=== PATIENT | female | born 1980 | race Hispanic/Latino ===

== ENCOUNTER 2017-11-14 03:22 | Emergency (ER) | payer MEDICAID, OTHER ==
[2017-11-14 04:12] LABS: APPEARANCE,URINE Cloudy (CLEAR); BILIRUBIN,URINE Negative (NEGATIVE); COLOR,URINE Yellow (YELLOW); GLUCOSE, URINE (UA) Negative (NEGATIVE); KETONES,URINE >=80 mg/dL (NEGATIVE); LEUKOCYTE ESTERASE ,URINE Trace (NEGATIVE); NITRATE,URINE Negative (NEGATIVE); OCCULT BLOOD,URINE Negative (NEGATIVE); PROTEIN,URINE Negative (NEGATIVE)
[2017-11-14 04:17] LABS: BASOPHILS % (AUTO) 0.9 % (0.0-5.0); EOSINOPHILS % (AUTO) 1.5 % (0.0-8.0); LYMPHOCYTES % (AUTO) 20.1 % (21.0-51.0); MEAN CORPUSCULAR HEMOGLOBIN 27.3 pg (27.0-33.0); MEAN CORPUSCULAR HGB CONC 33.4 g/dL (32.0-36.0); MEAN CORPUSCULAR VOLUME 81.7 fL (79-99); MONOCYTES % (AUTO) 7.5 % (3.0-13.0); NUCLEATED RED BLOOD CELLS 0.1 % (0.0-0.19); PLATELET COUNT (AUTO) 224 K/uL (130-400); RED BLOOD CELL COUNT(AUTO) 4.28 MIL/uL (4.00-5.50); RED CELL DISTRIBUTION WIDTH 14.8 % (11.0-15.5)
[2017-11-14 04:18] LABS: AMPHET/METH SCREEN,URINE NEGATIVE (NEGATIVE); BARBITURATE SCREEN, URINE NEGATIVE (NEGATIVE); BENZODIAZEPINES SCREEN,URINE NEGATIVE (NEGATIVE); CANNABINOID SCREEN,URINE NEGATIVE (NEGATIVE); COCAINE SCREEN,URINE POSITIVE (NEGATIVE); OPIATE SCREEN,URINE NEGATIVE (NEGATIVE); PHENCYCLIDINE SCREEN,URINE NEGATIVE (NEGATIVE)
[2017-11-14 04:19] LABS: AMORPHOUS SEDIMENT,UR Rare /LPF (None Seen); BACTERIA,URINE None Seen /HPF (None Seen); CREATININE 0.6 mg/dL (0.5-1.5); POTASSIUM 3.7 mmol/L (3.5-5.1); RBC,URINE None Seen /HPF (0-1); SQUAMOUS EPITHELIAL CELL,UR Moderate /HPF (0-2); WBC,URINE 0-1 /HPF (0-1)
[2017-11-14 04:23] LABS: ACETAMINOPHEN < 1 mcg/mL (10-30); ALBUMIN 3.7 g/dL (3.5-5.0); BILIRUBIN,TOTAL 0.5 mg/dL (0.2-1.0); SALICYLATE 5.8 mg/dL (2.8-20.0); TOTAL PROTEIN, SERUM 7.4 g/dL (6.0-8.3)
[2017-11-14 04:31] LABS: HCG,QUAL RESULT NEGATIVE (NEGATIVE)
[2017-11-14] MEDS ORDERED: DIVALPROEX SODIUM 250 MG TABLET.DR PO ONE (05:38)
[2017-11-14] MEDS ORDERED: TRAZODONE HCL 50 MG TAB ONE (05:39)
[2017-11-14] MEDS ORDERED: OLANZAPINE 10MG/ML 1ML VIAL IM ONE (05:43)
== END 2017-11-14 06:30 | disposition home or self-care (01) ==
LOC: EDH 03:22
DX: F20.9 Schizophrenia, unspecified (principal); F29 Unspecified psychosis not due to a substance or known physiological condition; Z98.890 Other specified postprocedural states
CPT/HCPCS: 36415; 80053; 80305; 81001; 81025; 85025; 93005; 96372; 99285; G0480 ×2; G0481; J3490

== ENCOUNTER 2018-03-21 18:59 | Emergency (ER) | payer MEDICAID ==
[2018-03-21] MEDS ORDERED: METOCLOPRAMIDE 10 MG/2 ML VIAL ONE (19:23)
[2018-03-21 19:33] LABS: EOSINOPHILS % (AUTO) 8.9 % (0.0-8.0); HEMATOCRIT 35.1 % (36-48); LYMPHOCYTES % (AUTO) 41.6 % (21.0-51.0); MEAN CORPUSCULAR HEMOGLOBIN 26.4 pg (27.0-33.0); MEAN CORPUSCULAR HGB CONC 33.3 g/dL (32.0-36.0); MEAN CORPUSCULAR VOLUME 79.3 fL (79-99); MONOCYTES % (AUTO) 14.2 % (3.0-13.0); NEUTROPHILS % (AUTO) 34.3 % (40.0-77.0); PLATELET COUNT (AUTO) 215 K/uL (130-400); RED BLOOD CELL COUNT(AUTO) 4.43 MIL/uL (4.00-5.50); RED CELL DISTRIBUTION WIDTH 17.3 % (11.0-15.5); WHITE BLOOD COUNT (AUTO) 4.9 K/uL (4.8-10.8)
[2018-03-21 19:38] LABS: CREATININE 0.8 mg/dL (0.5-1.5); POTASSIUM 3.4 mmol/L (3.5-5.1)
[2018-03-21 19:44] LABS: ALBUMIN 3.2 g/dL (3.5-5.0); BILIRUBIN,TOTAL 0.3 mg/dL (0.2-1.0); TOTAL PROTEIN, SERUM 6.8 g/dL (6.0-8.3)
[2018-03-21] MEDS ORDERED: POTASSIUM BICARB/CIT AC 25 MEQ TABLET.EFF ONE (19:56)
== END 2018-03-21 21:34 | disposition home or self-care (01) ==
LOC: EDH 18:59
DX: R51 Headache (principal); F41.9 Anxiety disorder, unspecified; F32.9 Major depressive disorder, single episode, unspecified; F20.9 Schizophrenia, unspecified; Z72.0 Tobacco use
CPT/HCPCS: 36415; 70450; 80053; 82550; 84703; 85025; 96372; 99285; J2765

== ENCOUNTER 2018-09-11 18:44 | Inpatient (IN) | payer MEDICAID, OTHER ==
[~2018-09-11] VITALS: Ht 157.5 cm; Wt 63.0 kg
[2018-09-11 19:49] LABS: BASOPHILS % (AUTO) 0.8 % (0.0-5.0); EOSINOPHILS % (AUTO) 1.8 % (0.0-8.0); HEMATOCRIT 33.3 % (36-48); LYMPHOCYTES % (AUTO) 39.2 % (21.0-51.0); MEAN CORPUSCULAR HEMOGLOBIN 26.2 pg (27.0-33.0); MEAN CORPUSCULAR HGB CONC 32.9 g/dL (32.0-36.0); MEAN CORPUSCULAR VOLUME 79.7 fL (79-99); MONOCYTES % (AUTO) 6.1 % (3.0-13.0); NEUTROPHILS % (AUTO) 52.1 % (40.0-77.0); NUCLEATED RED BLOOD CELLS 0.1 % (0.0-0.19); PLATELET COUNT (AUTO) 230 K/uL (130-400); RED BLOOD CELL COUNT(AUTO) 4.17 MIL/uL (4.00-5.50); RED CELL DISTRIBUTION WIDTH 16.1 % (11.0-15.5); WHITE BLOOD COUNT (AUTO) 5.1 K/uL (4.8-10.8)
[2018-09-11 19:58] LABS: CREATININE 0.5 mg/dL (0.5-1.5); POTASSIUM 3.6 mmol/L (3.5-5.1)
[2018-09-11 20:03] LABS: ALBUMIN 2.6 g/dL (3.5-5.0); BILIRUBIN,TOTAL 0.1 mg/dL (0.2-1.0); TOTAL PROTEIN, SERUM 6.1 g/dL (6.0-8.3)
[2018-09-11 20:08] LABS: APPEARANCE,URINE Cloudy (CLEAR); BILIRUBIN,URINE Negative (NEGATIVE); COLOR,URINE Yellow (YELLOW); GLUCOSE, URINE (UA) Negative (NEGATIVE); KETONES,URINE Negative (NEGATIVE); LEUKOCYTE ESTERASE ,URINE Negative (NEGATIVE); NITRATE,URINE Negative (NEGATIVE); OCCULT BLOOD,URINE Negative (NEGATIVE); PH,URINE 7.5 (5.0-8.0); PROTEIN,URINE Negative (NEGATIVE)
[2018-09-11 20:38] LABS: BACTERIA,URINE Few /HPF (None Seen); RBC,URINE 0-1 /HPF (0-1); SQUAMOUS EPITHELIAL CELL,UR Rare /HPF (0-2); WBC,URINE 0-1 /HPF (0-1)
[2018-09-11 20:39] LABS: AMORPHOUS SEDIMENT,UR Few /LPF (None Seen)
--- NOTE | 2018-09-11 22:45 | NUR ---
Patient received from ED: Patient came in via stretcher accompanied by director sports and Tyrese Noel Ingredient Handler. Patient had history of Schizoprenia had slurred speech speech. Patient and Guard informed that she can eat regular foods and nothing by mouth after Midnight. They were oriented to her room, call light given. Plan of care discussed with patient verbalizes understanding.
[2018-09-11 22:55] VITALS: BP 108/62
--- NOTE | 2018-09-11 22:55 | NUR ---
Patient informed: Patient and Blayne Noel informed that patient can have regular diet after Midnight she cannot eat or drink anything. They verbalizes understanding.
--- NOTE | 2018-09-11 22:55 | NUR ---
Patient given food to eat: Patient requested something to eat was given a [place], jello and apple juice after eating she asked for another one. Ashley Bert said, " She had eaten a sandwich also in ED before coming in.
--- NOTE | 2018-09-11 22:55 | NUR ---
Patient came from [facility] accompanied by a Roll Forming Machine Set Up Mechanic Tyrese Noel.
[2018-09-11] MEDS ORDERED: ACETAMINOPHEN 325 MG TAB PO PRN ×2 (23:00)
[2018-09-11] MEDS ORDERED: ONDANSETRON HCL MDV 20ML 2 MG/ML VIAL IVP PRN (23:00)
[2018-09-12] MEDS: LACTATED RINGERS 1000ML 1,000 ML IV SCH ×3 (00:39→19:41)
[2018-09-12 00:54] VITALS: BP 106/53
[2018-09-12 04:11] VITALS: BP 107/56
[2018-09-12] MEDS ORDERED: PREN-66 PO (05:07)
[2018-09-12] MEDS ORDERED: LURA20TA PO (05:07)
[2018-09-12] MEDS ORDERED: TRAZ150T79 PO (05:07)
--- NOTE | 2018-09-12 07:15 | NUR ---
REPORT RECEIVED FROM SNEHA SHAH AND WAS MADE AWARE OF ULTRASOUND SHOWING A DEMISE OF APPROX. 16.[address] HURTADO AT THIS TIME AND WAS MADE AWARE OF PATIENT HAVING A DEMISE AND NOT MISSED . INDICATED HE WOULD BE IN THIS A.M. TO ASSESS PATIENT. PATIENT NPO AT THIS TIME.
[2018-09-12 07:31] VITALS: BP 93/52
--- NOTE | 2018-09-12 07:40 | NUR ---
PATIENT ASSESSED AND DENIES PAIN AND NO VAGINAL BLEEDING NOTED. PIV TO RAC IS INFUSING WELL AND PATIENT CALM AT THIS TIME AND HAS COUNTY OFFICER AT BEDSIDE.
--- NOTE | 2018-09-12 08:15 | NUR ---
BENNY SANDHU IN FROM [facility] AND INDICATED NEEDING TO KNOW IF ANYTHING WAS GOING TO BE DONE AND FIND OUT LENGTH OF TIME PATIENT WOULD BE STAYING IN HOSPITAL. INFORMED BENNY SANDHU THAT UNTIL DR. HURTADO COMES TO EVALUATE PATIENT, I COULD NOT KNOW WHAT THE PLAN WOULD BE.
[2018-09-12 10:34] LABS: AMPHET/METH SCREEN,URINE NEGATIVE (NEGATIVE); BARBITURATE SCREEN, URINE NEGATIVE (NEGATIVE); BENZODIAZEPINES SCREEN,URINE NEGATIVE (NEGATIVE); CANNABINOID SCREEN,URINE NEGATIVE (NEGATIVE); COCAINE SCREEN,URINE POSITIVE (NEGATIVE); OPIATE SCREEN,URINE NEGATIVE (NEGATIVE); PHENCYCLIDINE SCREEN,URINE NEGATIVE (NEGATIVE)
--- NOTE | 2018-09-12 11:00 | NUR ---
DR. HURTADO REQUESTED TO GET QUALITY ASSURANCE SUPERVISOR AND PATIENT'S FATHER WHO HAS LEGAL POWER OF MACHINE SORTER FOR MEDICAL PURPOSES TO VERIFY DEMISE FOR CONSENTING PURPOSES. PATIENT'S FATHER AGREED AND STATED BEING IN AGREEMENT WITH WHATEVER DR. HURTADO NEEDED TO DO AND SIGNED CONSENT FOR REPEAT SECTION. DR. HURTADO INDICATED THAT IT WOULD BE DONE IN A.M. ON 09/13/2018. PATIENT IS STABLE AND HAS HAD NO C/O PAIN. UDS WAS DONE REQUESTED AND PATIENT WAS POSITIVE FOR COCAINE.
--- NOTE | 2018-09-12 11:07 | NUR ---
DC PLAN SPOKE TO DR. HURTADO - PATIENT FROM [facility] WAITING ON PARENTS TO ARRIVE. PER FATHER HAS POA. FATHER WOULD LIKE TUBAL LIGATION. SPOKE TO MARION DIRECTOR OF CASE MANAGEMENT. SAID TUBAL NOT EMERGENCY. HAS TO GET PRE AUTHORIZED BY MEDICAID AND THERE IS [address] LET [address]. HURTADO KNOW SAID WILL NOT DO TUBAL. WILL NEED TO DO C SECTION BECAUSE BABY APPEARS TO BE FURTHER ALONG THAN MOTHER IS AWARE.
[2018-09-12 11:30] VITALS: BP 89/42
[2018-09-12 15:38] VITALS: BP 123/43
[2018-09-12 20:25] VITALS: BP 120/69
--- NOTE | 2018-09-12 20:25 | NUR ---
Patient: Patient received with leg cuff both lower extremities with Tyrese Lara at bedside to watch patient. She had an IV of LR infusing at 125 ml/hour. Diaper changed for incontinent urine. Plan of care discussed with patient and Jane Noel. They verbalizes understanding. Patient had history of Section per Salima Slade RN, Patient's Father told SNEHA Slade , also he had a special medical Power of Facilities Operations Technician. Patient denied any Surgery yesterday when interviewed upon admission.
--- NOTE | 2018-09-12 20:30 | NUR ---
LOS theodore noted was off. Jane Noel said patient took it off.
[2018-09-13] VITALS (7 sets, daily range): BP systolic 92–109; BP diastolic 53–66
--- NOTE | 2018-09-13 00:20 | NUR ---
PATIENT: Patient had wet diaper verbalizes the need to shower. She was assisted to take a shower, needs provided. At 0037 she was back to bed, LOS theodore applied informed not to take it out. She verbalizes understanding.
[2018-09-13] MEDS: LACTATED RINGERS 1000ML 1,000 ML IV SCH (05:12)
[2018-09-13] MEDS ORDERED: DURAMORPH PF1 MG/ML 10ML AMP IV ONE (10:02)
--- NOTE | 2018-09-13 10:30 | NUR ---
PATIENT WAS TAKEN TO L/D OR FOR HYSTEROSCOPY FOR REMOVAL OF DEMISE. PATIENT STABLE AND WAS CALM.
[2018-09-13] MEDS ORDERED: CALDOLOR 800MG+NS 250ML 250 ML IV ONE (10:42)
[2018-09-13] MEDS ORDERED: CEFAZOLIN SODIUM 1 GM VIAL ONE (10:42)
[2018-09-13] MEDS ORDERED: DEXAMETHASONE SOD PHOSPHATE 10MG/ML 1ML VIAL ONE (10:52)
[2018-09-13] MEDS ORDERED: MIDAZOLAM HCL 1 MG/ML 2ML VIAL ONE ×3 (10:52→11:33)
[2018-09-13] MEDS ORDERED: LIDOCAINE PF 2% 5ML ABBOJECT ONE (10:52)
[2018-09-13] MEDS ORDERED: FENTANYL CITRATE PF 50 MCG/1 ML 2ML VIAL ONE (10:53)
[2018-09-13] MEDS ORDERED: PROPOFOL 10 MG/ML 20ML VIAL IV ONE (10:53)
[2018-09-13] MEDS ORDERED: ONDANSETRON HCL 4 MG/2 ML VIAL ONE (10:53)
[2018-09-13] MEDS ORDERED: LIDOCAINE HCL 2% JELLY 5 ML ONE (10:54)
--- NOTE | 2018-09-13 11:00 | NUR ---
PATIENT'S FATHER IN TO SEE PATIENT AND INDICATED WAS GOING TO LOBBY TO WAIT FOR SURGERY TO BE DONE. DR. HURTADO INDICATED BEING AWARE AND WOULD SPEAK TO HIM.
[2018-09-13] MEDS ORDERED: CEFAZOLIN SODIUM 1 GM VIAL IVP ONE (11:03)
[2018-09-13] MEDS ORDERED: OXYTOCIN 10 USP UNITS/ML ONE (11:22)
[2018-09-13] MEDS ORDERED: SODIUM CHLORIDE 0.9% 10 ML VIAL IVP PRN (12:15)
[2018-09-13] MEDS ORDERED: DEXTROSE 5 %-0.45 % NACL 1,000 ML IV PRN (12:15)
[2018-09-13] MEDS ORDERED: IBUPROFEN 600 MG TABLET PO PRN (12:15)
[2018-09-13] MEDS ORDERED: DIPHENHYDRAMINE HCL 25 MG CAPSULE PO PRN (12:15)
[2018-09-13] MEDS ORDERED: ACETAMINOPHEN-CODEINE 300/30MG TAB PO PRN (12:15)
[2018-09-13] MEDS ORDERED: OXYTOCIN-LR 20 UNITS/1000 ML 1,000 ML IV ONE (12:43)
[2018-09-13] MEDS ORDERED: EPHEDRINE SULFATE 50 MG/ML AMPULE IVP PRN (13:00)
[2018-09-13] MEDS ORDERED: NALOXONE HCL 0.4 MG/1 ML ML IVP PRN (13:00)
[2018-09-13] MEDS ORDERED: ONDANSETRON HCL 4 MG/2 ML VIAL IVP PRN (13:00)
[2018-09-13] MEDS ORDERED: METOCLOPRAMIDE 10 MG/2 ML VIAL IVP PRN (13:00)
[2018-09-13] MEDS ORDERED: PROMETHAZINE HCL 25 MG/ML 1ML AMPULE IM PRN (13:00)
[2018-09-13] MEDS ORDERED: HYDROCODONE/ACETAMINOPHEN 5/325 MG TAB PO PRN (13:00)
[2018-09-13] MEDS ORDERED: ONDANSETRON HCL 4 MG/2 ML 8 MG in SODIUM CHLORIDE 0.9% 50 ML IVP NR (13:00)
[2018-09-13] MEDS ORDERED: MORPHINE SULFATE 2 MG/ML 1ML SYG IVP PRN (13:00)
[2018-09-13] MEDS ORDERED: DiphenhydrAMINE HCL 50 MG/ML VIAL IVP PRN (13:00)
--- NOTE | 2018-09-13 13:30 | NUR ---
REPORT RECEIVED FROM Carter SHEPHERD RN AND PATIENT TRANSFERED BACK TO HER ROOM. PATIENT IS STABLE AND DENIES PAIN. PIV PATENT AND INFUSING WELL TO RAC. FUNDUS IS FIRM AND LOCHIA IS SMALL. ABDOMINAL DRESSING HAS SMALL STAIN AND WAS MARKED. GEORGE CATHETER IS DRAINING CLEAR YELLOW URINE.
[2018-09-13] MEDS: ONDANSETRON HCL 4 MG/2 ML VIAL IVP PRN ×2 (13:49→18:31)
[2018-09-13] MEDS: HYDROCODONE/ACETAMINOPHEN 5/325 MG TAB PO PRN (14:00)
--- NOTE | 2018-09-13 18:00 | NUR ---
PATIENT HAS BEEN TOLERATING DIET WELL AND FULL LIQUIDS WERE ORDERED FOR DINNER. ATE 100% AND DENIES ANY NAUSEA OR VOMITING. PATIENT HAS BEEN MEDICATED WITH ZOFRAN AND BENADRYL FOR ITCHING AND NORCO FOR PAIN.
[2018-09-13] MEDS: CALDOLOR 800MG+NS 250ML 250 ML IV SCH (20:20)
[2018-09-13] MEDS: DOCUSATE SODIUM 100 MG CAP PO SCH (20:20)
--- NOTE | 2018-09-13 20:45 | NUR ---
RICKIE BLUNT IN ROOM/ AT BEDSIDE, PLACED ANKLE CUUFFS ON PATIENT Addendum: 09/14/18 at 0130 by KAYLA MORAES LVN Amended: Links added.
[2018-09-14] MEDS: HYDROCODONE/ACETAMINOPHEN 5/325 MG TAB PO PRN (00:13)
[2018-09-14 03:21] VITALS: BP 105/58
[2018-09-14] MEDS: CALDOLOR 800MG+NS 250ML 250 ML IV SCH (04:42)
--- NOTE | 2018-09-14 05:35 | NUR ---
ACTIVITY SUSHILA CARE GIVEN, CARLITA MOSHER, ASSISTED TO SIDE OF BED, DANGLED, TOLERATED WELL, UP TO CHAIR W/O ANY DIFFICULTY GUARD AT SIDE Addendum: 09/14/18 at 0554 by KAYLA MORAES LVN Amended: Links added.
[2018-09-14 07:18] LABS: HEMATOCRIT 29.7 % (36-48); MEAN CORPUSCULAR HEMOGLOBIN 26.4 pg (27.0-33.0); MEAN CORPUSCULAR HGB CONC 32.3 g/dL (32.0-36.0); MEAN CORPUSCULAR VOLUME 81.7 fL (79-99); PLATELET COUNT (AUTO) 217 K/uL (130-400); RED BLOOD CELL COUNT(AUTO) 3.63 MIL/uL (4.00-5.50); RED CELL DISTRIBUTION WIDTH 16.1 % (11.0-15.5); WHITE BLOOD COUNT (AUTO) 6.1 K/uL (4.8-10.8)
[2018-09-14 07:41] VITALS: BP 108/52
[2018-09-14] MEDS ORDERED: BISACODYL 10 MG SUPP.RECT RC PRN (08:00)
[2018-09-14] MEDS ORDERED: SIMETHICONE 80 MG TAB.CHEW PO PRN (08:00)
[2018-09-14] MEDS ORDERED: ACETAMINOPHEN-CODEINE 300/30MG TAB PO PRN (08:00)
[2018-09-14] MEDS ORDERED: HYDROCODONE/ACETAMINOPHEN 5/325 MG TAB PO PRN (08:00)
[2018-09-14] MEDS ORDERED: DIPHENHYDRAMINE HCL 25 MG CAPSULE PO PRN (08:00)
[2018-09-14] MEDS ORDERED: ACETAMINOPHEN EXTRA STRENGTH 500 MG TABLET PO PRN (08:00)
--- NOTE | 2018-09-14 08:30 | NUR ---
GEORGE GEORGE REMOVED, CATHETER TIP INTACT, 500mL OF CLEAR YELLOW URINE REMOVED, SUSHILA-CARE PROVIDED; DRESSING OVER INCISION REMOVED EXPOSING INCISION w/ HIDDEN STITCH, DRY AND INTACT, COVERED WITH SUSHILA PAD TO MAINTAIN DRY, ABDOMINAL BINDER PLACED OVER FOR SUPPORT; SCDs OFF ALREADY, ADJUSTED LOS HOSES; PT OOB TO CHAIR, STEADY GAIT, NO DIZZINESS NOR FATIGUE NOTED; PT DEEP BREATHED AND COUGHED UP SMALL, THIN, CLEAR PHLEGM, ENCOURAGED I.S. USAGE; POC DISCUSSED, PT VERBALIZED UNDERSTANDING Addendum: 09/14/18 at 1312 by PAIGE TATE RN Amended: Links added.
[2018-09-14] MEDS: DOCUSATE SODIUM 100 MG CAP PO SCH ×4 (09:00→21:33)
[2018-09-14] MEDS: SIMETHICONE 80 MG TAB.CHEW PO PRN ×4 (09:02→21:33)
[2018-09-14 11:09] VITALS: BP_SYST 118; BP_SYST 120; BP_DIAS 75; BP_DIAS 76
[2018-09-14] MEDS ORDERED: IBUPROFEN 800 MG TAB ONE (12:52)
[2018-09-14] MEDS: IBUPROFEN 800 MG TAB PO SCH ×2 (13:14→21:33)
[2018-09-14] MEDS: LACTATED RINGERS 1000ML 1,000 ML IV SCH (15:00)
--- NOTE | 2018-09-14 15:15 | NUR ---
ACTIVITY PT REQUESTING HELP SINCE VOIDED ON SELF AND SHE WALKED IN ROOM TOWARDS THE BATHROOM, STATED SHE TOOK OFF PADS AND UNDERWEAR TO SLEEP AND WHEN AWOKE, DID NOT MAKE IT IN TIME TO BATHROOM; PT WAS ABLE TO DO OWN SUSHILA-CARE, PT WAS GIVEN A DIAPER PER REQUEST. PT BEGAN TO SPEAK IN A CHILD-LIKE VOICE, REQUESTING COOKIES AND CHOCOLATE THAT HER FATHER HAD BROUGHT HER PREVIOUSLY; RICKIE STATED SHE DOES NOT ACT LIKE THAT WHILE IN LONG TERM SO IS VERY SURPRISED AT HER ATTITUDE. TRIED TO TALK WITH PT BUT SHE JUST WANTS HER SNACKS. WILL CONTINUE TO MONITOR
[2018-09-14 15:32] VITALS: BP 109/60
--- NOTE | 2018-09-14 17:58 | NUR ---
ACTIVITY ENCOURAGED PT TO AMBULATE IN HALLWAY, STATED WILL DO IT LATER; HAD CONVERSATION REGARDING SMOKING CESSATION, PT VERBALIZED SHE SMOKES A CIGARETTE ONCE IN A BLUE BOWDEN AND ONLY 1 CIGARETTE, STATES DEPENDENCY IS LOW TO NONE; DISCUSSED WITH PT THAT GETTING OUT OF BED IS GOOD, EVEN TO VOID IN TOILET BUT PT AND RICKIE BOTH STATE THAT SHE SOMETIMES DOES NOT MAKE IT ON TIME THUS PREFERS TO USE DIAPERS, EXPLAINED I.S., SUSHILA-CARE AND INCISION CARE, PT VERBALIZED UNDERSTANDING; PT HAS SHOWERED THREE TIMES DURING THIS SHIFT, WHEN ASKED WHY STATES IT HELPS WITH THE CRAMPING SINCE MEDS DO NOT TAKE CRAMPS AWAY; POC DISCUSSED WITH PT VERBALIZING UNDERSTANDING
--- NOTE | 2018-09-14 19:14 | NUR ---
REPORT REPORT GIVEN TO SNEHA GRIFFIN FOR CONTINUITY OF CARE AT BEDSIDE
[2018-09-14 21:15] VITALS: BP 89/44
[2018-09-15] VITALS: BP 102/57
[2018-09-15 03:57] VITALS: BP 102/62
[2018-09-15] MEDS: IBUPROFEN 800 MG TAB PO SCH ×2 (05:02→13:13)
[2018-09-15 06:17] LABS: HEPATITIS Bs ANTIGEN SCREEN P Negative (Negative)
[2018-09-15] MEDS: LACTATED RINGERS 1000ML 1,000 ML IV SCH (07:00)
[2018-09-15 08:28] VITALS: BP 105/49
[2018-09-15] MEDS: DOCUSATE SODIUM 100 MG CAP PO SCH ×2 (08:29→08:32)
[2018-09-15] MEDS: SIMETHICONE 80 MG TAB.CHEW PO PRN ×2 (08:29→13:12)
--- NOTE | 2018-09-15 09:55 | NUR ---
COCAINE VISITED WITH PATIENT. PATIENT RESTING. INTRODUCED SELF EXPLAINED REASON FOR VISIT. ASKED IF INTERESTED IN DRUG CESSATION ARCADIO SANDRA NORisa ASKED IF WANTED PACKET WITH INFORMATION ARCADIO SANDRA NORisa EXPLAINED WHAT PACKET HAD AND LEFT AT BEDSIDE. Addendum: 09/15/18 at 0957 by AINSLEY AMADOR RN CM Amended: Links added.
[2018-09-15 11:36] VITALS: BP 113/63
--- NOTE | 2018-09-15 13:00 | NUR ---
REPORT REPORT CALLED INTO NURSE KATHERYN LVN AT [facility] [phone] FOR CONTINUITY OF CARE, FOLLOW-UP APPT, PRESCRIPTION AND INFORMATION FOR CARE
--- NOTE | 2018-09-15 13:45 | NUR ---
DISCHARGE TO LAW ENFORCEMENT PT STABLE, NO PAIN, NO COMPLAINTS; PT LEFT UNIT, VIA WHEELCHAIR, WITH SHACKLES ON EXTREMITIES, ACCOMPANIED BY BRANDON SAINI, AND RICKIE MOHAMUD, TO VEHICLE TO BE TRANSPORTED BACK TO [facility], CARRYING ALL PERSONAL BELONGINGS, INSTRUCTIONS, AND PRESCRIPTION; PT LEFT FACILITY IN CUSTODIAL VEHICLE, REPORT WAS PREVIOUSLY CALLED INTO [facility] FOR CONTINUITY OF CARE
== END 2018-09-15 13:45 | DRG 787 ==
LOC: EDH 18:44 → EDHIP 21:59 → OBSVTOIN 21:59 → WSH 22:47
PROVIDERS: ADMIT Obstetrics & Gynecology; ATTEND Obstetrics & Gynecology
PROC: 10D00Z1 Extraction of Products of Conception, Low, Open Approach (ICD-10-PCS; principal; 2018-09-13 08:00)
DX: O36.4XX0 Maternal care for intrauterine death, not applicable or unspecified (principal); O99.324 Drug use complicating childbirth; O99.344 Other mental disorders complicating childbirth; F20.9 Schizophrenia, unspecified; F14.90 Cocaine use, unspecified, uncomplicated; Z37.1 Single stillbirth; Z3A.21 21 weeks gestation of pregnancy
CPT/HCPCS: 36415; 59510; 76815; 80053; 80305; 81001; 84702; 85025; 85027; 86592; 86645; 86694; 86701; 86778; 86850; 86900; 86901; 87340; 87390; 87520; 88300; 88305; A4344; G0378; J0690; J1100; J1200; J1741; J2001; J2250; J2274; J2405; J2590; J2704; J3010; J7120

== ENCOUNTER 2022-09-20 18:49 | Emergency (ER) | payer OTHER ==
[~2022-09-20] VITALS: Ht 157.5 cm; Wt 70.3 kg
[~2022-09-20 18:49] MED LIST: LURA20TA PO; PREN-66 PO; TRAZ150T79 PO
[2022-09-20 19:37] VITALS: BP 120/63
== END 2022-09-20 19:44 ==
LOC: EDH 18:49
DX: F14.10 Cocaine abuse, uncomplicated (principal); F17.200 Nicotine dependence, unspecified, uncomplicated; Z79.899 Other long term (current) drug therapy